=== PATIENT | male | born 1970 | race Two or more races ===

== ENCOUNTER 2017-11-19 01:45 | Inpatient (IN) | payer OTHER ==
[~2017-11-19] VITALS: Ht 177.8 cm; Wt 68.5 kg
[2017-11-19] MEDS ORDERED: BENADRYL50 MG PO (02:04)
== END 2017-11-21 12:07 | disposition home or self-care (01) | DRG 312 ==
LOC: ER 01:45 → SEC-K 10:06 → MEDI 12:29 → SEC-K 13:11 → MEDJ 13:31
PROC: BW28ZZZ Computerized Tomography (CT Scan) of Head (ICD-10-PCS; principal; 2017-11-19)
PROC: BG44ZZZ Ultrasonography of Thyroid Gland (ICD-10-PCS; 2017-11-19)
PROC: B246ZZZ Ultrasonography of Right and Left Heart (ICD-10-PCS; 2017-11-19)
PROC: B030Y0Z Magnetic Resonance Imaging (MRI) of Brain using Other Contrast, Unenhanced and Enhanced (ICD-10-PCS; 2017-11-19)
PROC: 4A12X4Z Monitoring of Cardiac Electrical Activity, External Approach (ICD-10-PCS; 2017-11-19)
DX: R55 Syncope and collapse (principal); E03.8 Other specified hypothyroidism; S09.8XXA Other specified injuries of head, initial encounter; Y93.89 Activity, other specified; Y92.091 Bathroom in other non-institutional residence as the place of occurrence of the external cause; Y99.8 Other external cause status; W18.11XA Fall from or off toilet without subsequent striking against object, initial encounter
CPT/HCPCS: 70552; 70553

== ENCOUNTER 2017-12-03 08:37 | Outpatient (CLI) | payer OTHER ==
[~2017-12-03 08:37] MED LIST: BENADRYL50 MG PO
== END 2017-12-03 08:44 | disposition home or self-care (01) ==
LOC: SONOGRAMA 08:37
DX: E04.1 Nontoxic single thyroid nodule (principal)